=== PATIENT | male | born 1965 | race African-American/Black ===

== ENCOUNTER 2019-10-18 09:40 | Inpatient (IN) | payer MEDICARE, MEDICAID ==
[~2019-10-18] VITALS: Ht 175.3 cm; Wt 96.6 kg
[2019-10-18] MEDS ORDERED: SODIUM CHLORIDE 0.9% 1,000 ML IV ONE (10:25)
[2019-10-18] MEDS ORDERED: MORPHINE SULFATE 4 MG/ML CPJ (NOT FOR IM USE) IV STA (10:25)
[2019-10-18] MEDS ORDERED: ONDANSETRON HCL 4MG/2ML INJ IV STA (10:25)
[2019-10-18] MEDS ORDERED: IPRATROPIUM BROMIDE (0.02%) 0.5MG/2.5ML NEB HHN STA ×2 (10:28→12:16)
[2019-10-18] MEDS ORDERED: METHYLPREDNISOLONE SOD SUCC 125 MG/2 ML VIAL IV STA (10:28)
[2019-10-18] MEDS ORDERED: ALBUTEROL (0.083%) 2.5MG/3ML NEB HHN STA ×2 (10:28→12:16)
[2019-10-18 11:47] LABS: BASOPHILS % 0.6 % (0.0-2.0); HEMOGLOBIN. 16.8 g/dL (14.0-18.0); LYMPHOCYTES % 25.9 % (20.0-50.0); MEAN CORPUSCULAR HEMOGLOBIN 30.6 pg (28.0-32.0); MEAN CORPUSCULAR VOLUME 91.3 fL (80.0-94.0); MEAN PLATELET VOLUME 10.1 fl (7.4-10.4); MONOCYTES % 8.3 % (2.0-8.0); NEUTROPHILS % 64.2 % (40.0-76.0); PLATELET 152 x1000/uL (130-400); RED BLOOD CELL COUNT 5.48 mill/uL (4.7-6.1); RED CELL DISTRIBUTION WIDTH 16.6 % (11.6-14.6)
[2019-10-18 11:48] LABS: CHLORIDE 111 mEq/L (98-107); INR 1.3; PARTIAL THROMBOPLASTIN TIME 30.8 sec (23.4-31.0); PROTHROMBIN TIME 13.1 sec (9.6-11.0)
[2019-10-18] MEDS ORDERED: GUAIFENESIN 200MG/10ML SUGAR FREE UDC PO ONE (13:00)
[2019-10-18] MEDS ORDERED: IOHEXOL-350 100 ML BOTTLE ONE (13:55)
[2019-10-18] MEDS ORDERED: ASPIRIN 325MG EC TABLET PO ONE (14:15)
[2019-10-18 14:22] LABS: CLARITY URINE CLEAR (CLEAR); COLOR URINE YELLOW (YELLOW); KETONES URINE 2+ (NEGATIVE); LEUKOCYTE ESTERASE URINE NEGATIVE (NEGATIVE); NITRITE URINE NEGATIVE (NEGATIVE); OCCULT BLOOD URINE NEGATIVE (NEGATIVE); PH URINE 5.5 (4.5-8.0); PROTEIN URINE NEGATIVE (NEGATIVE); SPECIFIC GRAVITY URINE 1.042 (1.005-1.030)
[2019-10-18 14:55] LABS: *AMPHETAMINES SCREEN URINE NEGATIVE (NEGATIVE)
[2019-10-18 14:56] LABS: *BARBITURATES SCREEN URINE NEGATIVE (NEGATIVE); *BENZODIAZEPINES SCREEN URINE NEGATIVE (NEGATIVE); *COCAINE SCREEN URINE PRESUMTIVE POSITIVE (NEGATIVE); CANNABINOID URINE SCREEN PRESUMTIVE POSITIVE (NEGATIVE); METHADONE URINE SCREEN NEGATIVE (NEGATIVE); OPIATES URINE SCREEN PRESUMTIVE POSITIVE (NEGATIVE); PHENCYCLIDINE URINE SCREEN NEGATIVE (NEGATIVE)
[2019-10-18] MEDS ORDERED: CLONIDINE 0.1MG TABLET PO PRN (15:15)
[2019-10-18] MEDS ORDERED: ACETAMINOPHEN 325MG TABLET PO PRN (15:15)
[2019-10-18] MEDS ORDERED: DIPHENHYDRAMINE 50MG/ML VIAL IV PRN (15:15)
[2019-10-18] MEDS ORDERED: ONDANSETRON HCL 4MG/2ML INJ IV PRN (15:15)
[2019-10-18] MEDS ORDERED: IPRATROPIUM/ALBUTEROL 0.5-3(2.5)MG/3ML NEB HHN PRN (15:15)
[2019-10-18 15:40] LABS: PHOSPHORUS 2.7 mg/dL (2.5-4.9)
[2019-10-18] MEDS ORDERED: PNEUMOCOCCAL 23-VAL P-SAC VAC 0.5 ML IM ONE (18:00)
[2019-10-18 18:04] VITALS: BP 105/59
[2019-10-18] MEDS: MORPHINE SULFATE 2 MG/ML CPJ (NOT FOR IM USE) IV PRN ×2 (18:29→22:59)
[2019-10-18] MEDS: ENOXAPARIN 30MG/0.3ML SYR SUBCUT SCH (18:29)
[2019-10-18] MEDS ORDERED: SIMV-46 MT (18:48)
[2019-10-18] MEDS ORDERED: CARV3.1242 PO (18:54)
[2019-10-18] MEDS ORDERED: TRAZ-251 MT (18:54)
[2019-10-18] MEDS ORDERED: GABA-529 MT (18:57)
[2019-10-18] MEDS ORDERED: GABA-531 PO (18:57)
[2019-10-18] MEDS ORDERED: CARI350T28 MT (18:58)
[2019-10-18] MEDS ORDERED: RISP2TAB22 PO (18:59)
[2019-10-18] MEDS ORDERED: SERT20OR6 PO (19:00)
[2019-10-18] MEDS ORDERED: FURO20TA4 PO (19:01)
[2019-10-18 20:00] VITALS: BP 107/65
[2019-10-18] MEDS: LORAZEPAM 0.5MG TABLET PO PRN (23:32)
[2019-10-19] VITALS: BP 108/54
[2019-10-19 04:00] VITALS: BP 105/83
[2019-10-19] MEDS: MORPHINE SULFATE 2 MG/ML CPJ (NOT FOR IM USE) IV PRN ×3 (05:26→22:39)
[2019-10-19] MEDS: LORAZEPAM 0.5MG TABLET PO PRN ×3 (06:07→23:26)
[2019-10-19 07:10] LABS: BASOPHILS % 0.5 % (0.0-2.0); HEMATOCRIT. 45.7 % (42.0-52.0); HEMOGLOBIN. 15.3 g/dL (14.0-18.0); LYMPHOCYTES % 15.3 % (20.0-50.0); MEAN CORPUSCULAR HEMOGLOBIN 30.5 pg (28.0-32.0); MEAN CORPUSCULAR VOLUME 91.1 fL (80.0-94.0); MEAN PLATELET VOLUME 10.6 fl (7.4-10.4); MONOCYTES % 10.7 % (2.0-8.0); NEUTROPHILS % 73.5 % (40.0-76.0); PLATELET 125 x1000/uL (130-400); RED BLOOD CELL COUNT 5.01 mill/uL (4.7-6.1); RED CELL DISTRIBUTION WIDTH 16.6 % (11.6-14.6)
[2019-10-19 07:51] LABS: CHLORIDE 108 mEq/L (98-107)
[2019-10-19 07:57] LABS: LDL CHOLESTEROL 67 mg/dL (5-100)
[2019-10-19 07:58] LABS: HDL CHOLESTEROL 61 mg/dL (40-59)
[2019-10-19 08:00] VITALS: BP 111/75
[2019-10-19 12:00] VITALS: BP 106/68
[2019-10-19] MEDS: ENOXAPARIN 30MG/0.3ML SYR SUBCUT SCH ×2 (12:46→21:39)
[2019-10-19] MEDS: CARISOPRODOL 350 MG TABLET PO SCH ×2 (15:05→21:39)
[2019-10-19 16:00] VITALS: BP 106/75
[2019-10-19] MEDS: DEXAMETHASONE 4MG/ML 1ML VIAL IV SCH (18:25)
[2019-10-19 20:00] VITALS: BP 105/60
[2019-10-20] VITALS: BP 110/71
[2019-10-20] MEDS: DEXAMETHASONE 4MG/ML 1ML VIAL IV SCH ×4 (01:26→18:00)
[2019-10-20 04:00] VITALS: BP 97/71
[2019-10-20] MEDS: CARISOPRODOL 350 MG TABLET PO SCH ×3 (05:23→20:13)
[2019-10-20 08:00] VITALS: BP 123/75
[2019-10-20] MEDS: LORAZEPAM 0.5MG TABLET PO PRN ×2 (08:15→15:11)
[2019-10-20] MEDS: ENOXAPARIN 30MG/0.3ML SYR SUBCUT SCH ×2 (08:15→21:00)
[2019-10-20] MEDS: MORPHINE SULFATE 2 MG/ML CPJ (NOT FOR IM USE) IV PRN ×2 (08:15→15:11)
[2019-10-20 08:20] LABS: BASOPHILS % 0.1 % (0.0-2.0); HEMOGLOBIN. 16.7 g/dL (14.0-18.0); LYMPHOCYTES % 9.1 % (20.0-50.0); MEAN CORPUSCULAR HEMOGLOBIN 30.4 pg (28.0-32.0); MEAN CORPUSCULAR VOLUME 91.2 fL (80.0-94.0); MONOCYTES % 4.7 % (2.0-8.0); NEUTROPHILS % 86.1 % (40.0-76.0); RED BLOOD CELL COUNT 5.49 mill/uL (4.7-6.1); RED CELL DISTRIBUTION WIDTH 16.7 % (11.6-14.6)
[2019-10-20 08:37] LABS: CHLORIDE 108 mEq/L (98-107)
[2019-10-20 09:36] LABS: PLATELET 135 x1000/uL (130-400)
[2019-10-20] MEDS ORDERED: HYDR-4001 MT (13:54)
[2019-10-20] MEDS ORDERED: CARI350T28 MT (13:54)
[2019-10-20 14:19] VITALS: BP 125/75
[2019-10-20 16:49] VITALS: BP 101/63
[2019-10-20 20:00] VITALS: BP 112/76
[2019-10-20] MEDS: PROMETHAZINE/DEXTROMETHORPHAN 6.25-15MG/5ML BOTTLE 120ML PO PRN (20:13)
[2019-10-21] VITALS: BP 98/60
[2019-10-21] MEDS: MORPHINE SULFATE 2 MG/ML CPJ (NOT FOR IM USE) IV PRN ×3 (01:21→15:06)
[2019-10-21] MEDS: PROMETHAZINE/DEXTROMETHORPHAN 6.25-15MG/5ML BOTTLE 120ML PO PRN (03:35)
[2019-10-21] MEDS: LORAZEPAM 0.5MG TABLET PO PRN ×3 (03:35→15:21)
[2019-10-21 04:00] VITALS: BP 103/67
[2019-10-21] MEDS: CARISOPRODOL 350 MG TABLET PO SCH ×3 (06:13→21:27)
[2019-10-21 08:00] VITALS: BP 100/74
[2019-10-21] MEDS: ENOXAPARIN 30MG/0.3ML SYR SUBCUT SCH ×2 (08:25→21:00)
[2019-10-21 12:00] VITALS: BP 101/64
[2019-10-21 16:00] VITALS: BP 105/63
[2019-10-21 20:00] VITALS: BP 104/71
[2019-10-21] MEDS: GUAIFENESIN 200MG/10ML SUGAR FREE UDC PO PRN (21:27)
[2019-10-22] VITALS: BP 99/72
[2019-10-22] MEDS: MORPHINE SULFATE 2 MG/ML CPJ (NOT FOR IM USE) IV PRN ×4 (00:31→20:48)
[2019-10-22] MEDS: LORAZEPAM 0.5MG TABLET PO PRN ×4 (03:12→21:01)
[2019-10-22] MEDS: GUAIFENESIN 200MG/10ML SUGAR FREE UDC PO PRN ×3 (03:12→13:34)
[2019-10-22 04:00] VITALS: BP 108/70
[2019-10-22] MEDS: CARISOPRODOL 350 MG TABLET PO SCH ×3 (07:02→22:15)
[2019-10-22 08:00] VITALS: BP 101/64
[2019-10-22] MEDS: ENOXAPARIN 30MG/0.3ML SYR SUBCUT SCH ×2 (08:06→20:49)
[2019-10-22 12:00] VITALS: BP 107/60
[2019-10-22 16:00] VITALS: BP 106/66
[2019-10-22 20:00] VITALS: BP 96/66
[2019-10-23] VITALS: BP 101/75
[2019-10-23 04:00] VITALS: BP 108/72
[2019-10-23] MEDS: LORAZEPAM 0.5MG TABLET PO PRN ×3 (04:23→19:48)
[2019-10-23] MEDS: MORPHINE SULFATE 2 MG/ML CPJ (NOT FOR IM USE) IV PRN ×3 (04:25→16:57)
[2019-10-23] MEDS: CARISOPRODOL 350 MG TABLET PO SCH ×3 (06:19→22:00)
[2019-10-23 08:00] VITALS: BP 116/82
[2019-10-23] MEDS: ENOXAPARIN 30MG/0.3ML SYR SUBCUT SCH ×2 (09:02→21:18)
[2019-10-23 12:00] VITALS: BP 110/71
[2019-10-23] MEDS: GUAIFENESIN 200MG/10ML SUGAR FREE UDC PO PRN ×2 (13:40→19:48)
[2019-10-23 16:00] VITALS: BP 110/74
[2019-10-23 20:00] VITALS: BP 107/69
[2019-10-23] MEDS: HYDROCODONE/ACETAMINOPHEN 10/325MG TABLET PO PRN (20:06)
[2019-10-24] VITALS: BP 102/67
[2019-10-24] MEDS: GUAIFENESIN 200MG/10ML SUGAR FREE UDC PO PRN ×4 (02:18→20:54)
[2019-10-24] MEDS: HYDROCODONE/ACETAMINOPHEN 10/325MG TABLET PO PRN ×4 (02:25→20:55)
[2019-10-24 04:00] VITALS: BP 107/73
[2019-10-24] MEDS: CARISOPRODOL 350 MG TABLET PO SCH ×3 (06:30→21:32)
[2019-10-24 08:00] VITALS: BP 108/63
[2019-10-24] MEDS: DIPHENHYDRAMINE 25MG CAPSULE PO PRN ×2 (09:03→22:09)
[2019-10-24] MEDS: ENOXAPARIN 30MG/0.3ML SYR SUBCUT SCH ×2 (09:04→20:54)
[2019-10-24 12:00] VITALS: BP 122/89
[2019-10-24 16:00] VITALS: BP 114/85
[2019-10-24 20:00] VITALS: BP 108/72
[2019-10-25] VITALS: BP 111/66
[2019-10-25] MEDS: HYDROCODONE/ACETAMINOPHEN 10/325MG TABLET PO PRN ×4 (02:58→23:39)
[2019-10-25 04:00] VITALS: BP 110/75
[2019-10-25] MEDS: CARISOPRODOL 350 MG TABLET PO SCH ×3 (05:39→21:10)
[2019-10-25 08:00] VITALS: BP 107/60
[2019-10-25] MEDS: GUAIFENESIN 200MG/10ML SUGAR FREE UDC PO PRN ×2 (09:16→17:38)
[2019-10-25] MEDS: ENOXAPARIN 30MG/0.3ML SYR SUBCUT SCH ×2 (09:16→21:00)
[2019-10-25 12:00] VITALS: BP 110/57
[2019-10-25 16:00] VITALS: BP 107/68
[2019-10-25 20:00] VITALS: BP 103/69
[2019-10-26] VITALS: BP 105/70
[2019-10-26 04:00] VITALS: BP 104/66
[2019-10-26] MEDS: CARISOPRODOL 350 MG TABLET PO SCH ×3 (05:15→21:56)
[2019-10-26] MEDS: HYDROCODONE/ACETAMINOPHEN 10/325MG TABLET PO PRN ×3 (06:13→20:34)
[2019-10-26] MEDS: GUAIFENESIN 200MG/10ML SUGAR FREE UDC PO PRN ×2 (06:15→21:13)
[2019-10-26 08:00] VITALS: BP 104/70
[2019-10-26] MEDS: ENOXAPARIN 30MG/0.3ML SYR SUBCUT SCH ×3 (09:00→21:00)
[2019-10-26 12:00] VITALS: BP 108/64
[2019-10-26 16:00] VITALS: BP 111/61
[2019-10-26 20:00] VITALS: BP 108/74
[2019-10-26] MEDS: DIPHENHYDRAMINE 25MG CAPSULE PO PRN (21:13)
[2019-10-27] VITALS: BP 107/65
[2019-10-27 04:00] VITALS: BP 110/81
[2019-10-27] MEDS: HYDROCODONE/ACETAMINOPHEN 10/325MG TABLET PO PRN ×3 (04:01→20:42)
[2019-10-27] MEDS: GUAIFENESIN 200MG/10ML SUGAR FREE UDC PO PRN ×2 (04:13→10:25)
[2019-10-27] MEDS: DIPHENHYDRAMINE 25MG CAPSULE PO PRN ×2 (04:13→23:34)
[2019-10-27] MEDS: CARISOPRODOL 350 MG TABLET PO SCH ×3 (06:04→21:40)
[2019-10-27 08:00] VITALS: BP 110/79
[2019-10-27] MEDS: ENOXAPARIN 30MG/0.3ML SYR SUBCUT SCH ×2 (09:34→20:41)
[2019-10-27 12:00] VITALS: BP 102/66
[2019-10-27 16:00] VITALS: BP 107/72
[2019-10-27 20:00] VITALS: BP 111/68
[2019-10-28] VITALS: BP 99/57
[2019-10-28 04:00] VITALS: BP 101/69
[2019-10-28] MEDS: HYDROCODONE/ACETAMINOPHEN 10/325MG TABLET PO PRN ×3 (04:05→19:40)
[2019-10-28] MEDS: CARISOPRODOL 350 MG TABLET PO SCH ×3 (05:51→21:00)
[2019-10-28 08:00] VITALS: BP 103/56
[2019-10-28] MEDS: ENOXAPARIN 30MG/0.3ML SYR SUBCUT SCH ×2 (09:10→20:52)
[2019-10-28 12:00] VITALS: BP 97/60
[2019-10-28 16:00] VITALS: BP 109/72
[2019-10-28 20:00] VITALS: BP 111/68
[2019-10-28] MEDS: DIPHENHYDRAMINE 25MG CAPSULE PO PRN (22:57)
[2019-10-29] VITALS: BP 96/55
[2019-10-29 04:00] VITALS: BP 107/58
[2019-10-29] MEDS: HYDROCODONE/ACETAMINOPHEN 10/325MG TABLET PO PRN ×2 (04:30→11:04)
[2019-10-29] MEDS: GUAIFENESIN 200MG/10ML SUGAR FREE UDC PO PRN ×2 (04:35→11:09)
[2019-10-29] MEDS: DIPHENHYDRAMINE 25MG CAPSULE PO PRN (05:12)
[2019-10-29] MEDS: CARISOPRODOL 350 MG TABLET PO SCH (06:15)
[2019-10-29 08:00] VITALS: BP 109/68
[2019-10-29 08:05] LABS: BASOPHILS % 1.3 % (0.0-2.0); HEMOGLOBIN. 17.1 g/dL (14.0-18.0); LYMPHOCYTES % 48.3 % (20.0-50.0); MEAN CORPUSCULAR HEMOGLOBIN 30.4 pg (28.0-32.0); MEAN CORPUSCULAR VOLUME 90.6 fL (80.0-94.0); MEAN PLATELET VOLUME 10.8 fl (7.4-10.4); NEUTROPHILS % 35.4 % (40.0-76.0); PLATELET 165 x1000/uL (130-400); RED BLOOD CELL COUNT 5.63 mill/uL (4.7-6.1); RED CELL DISTRIBUTION WIDTH 15.8 % (11.6-14.6)
[2019-10-29] MEDS: ENOXAPARIN 30MG/0.3ML SYR SUBCUT SCH (08:30)
[2019-10-29 08:33] LABS: CHLORIDE 108 mEq/L (98-107)
[2019-10-29 11:54] VITALS: BP 100/66
[2019-10-29 12:00] VITALS: BP 100/6
[2020-02-07] MEDS ORDERED: GABA-531 PO (16:14)
[2020-02-07] MEDS ORDERED: TRAZ-251 MT (16:14)
[2020-02-07] MEDS ORDERED: CARV3.1242 PO (16:14)
[2020-02-07] MEDS ORDERED: SIMV-46 MT (16:14)
[2020-02-07] MEDS ORDERED: FURO20TA4 PO (16:14)
[2020-02-07] MEDS ORDERED: RISP2TAB22 PO (16:14)
[2020-02-07] MEDS ORDERED: SERT20OR6 PO (16:14)
== END 2019-10-29 15:10 | disposition home or self-care (01) | DRG 552 ==
LOC: ER 09:40 → 5WST 14:49 → ENRESERV 15:28
PROVIDERS: ADMIT Internal Medicine; ATTEND Internal Medicine
DX: M47.27 Other spondylosis with radiculopathy, lumbosacral region (principal); M25.78 Osteophyte, vertebrae; I25.118 Atherosclerotic heart disease of native coronary artery with other forms of angina pectoris; F17.200 Nicotine dependence, unspecified, uncomplicated; I10 Essential (primary) hypertension; M48.061 Spinal stenosis, lumbar region without neurogenic claudication; E11.9 Type 2 diabetes mellitus without complications; F11.10 Opioid abuse, uncomplicated; J44.9 Chronic obstructive pulmonary disease, unspecified; M47.26 Other spondylosis with radiculopathy, lumbar region; F19.10 Other psychoactive substance abuse, uncomplicated; I25.2 Old myocardial infarction; Z95.5 Presence of coronary angioplasty implant and graft; Z79.899 Other long term (current) drug therapy
CPT/HCPCS: 36415; 71045; 71275; 72148; 74174; 80048; 80053; 80061; 80305; 81003; 83735; 83880; 84100; 84443; 84484; 85025; 86850; 86900; 90732; 93005; 93306; 93970; 94640; 97110; 97116; 97162; 97166; 97530; 97535; 99285; J1100; J1650; J2270; J2405; J2930; J7030; Q0163; Q9967

== ENCOUNTER 2020-01-22 07:25 | Inpatient (IN) | payer MEDICARE, MEDICAID ==
[~2020-01-22] VITALS: Ht 175.3 cm; Wt 90.3 kg
[~2020-01-22 07:25] MED LIST: CARI350T28 MT; CARV3.1242 PO; FURO20TA4 PO; GABA-531 PO; HYDR-4001 MT; RISP2TAB22 PO; SERT20OR6 PO; SIMV-46 MT; TRAZ-251 MT
[2020-01-22 09:47] LABS: BASOPHILS % 0.3 % (0.0-2.0); EOSINOPHILS % 2.2 % (0.0-5.0); HEMATOCRIT. 45.2 % (42.0-52.0); HEMOGLOBIN. 15.4 g/dL (14.0-18.0); LYMPHOCYTES % 26.1 % (20.0-50.0); MEAN CORPUSCULAR HEMOGLOBIN 30.8 pg (28.0-32.0); MEAN CORPUSCULAR VOLUME 90.3 fL (80.0-94.0); MEAN PLATELET VOLUME 10.3 fl (7.4-10.4); MONOCYTES % 10.3 % (2.0-8.0); NEUTROPHILS % 61.1 % (40.0-76.0); PLATELET 125 x1000/uL (130-400); RED BLOOD CELL COUNT 5.01 mill/uL (4.7-6.1); RED CELL DISTRIBUTION WIDTH 14.4 % (11.6-14.6)
[2020-01-22 09:51] LABS: CHLORIDE 103 mEq/L (98-107)
[2020-01-22 10:28] LABS: CLARITY URINE CLOUDY (CLEAR); COLOR URINE DARK YELLOW (YELLOW); KETONES URINE 3+ (NEGATIVE); LEUKOCYTE ESTERASE URINE TRACE (NEGATIVE); NITRITE URINE NEGATIVE (NEGATIVE); OCCULT BLOOD URINE TRACE (NEGATIVE); PH URINE 5.5 (4.5-8.0); PROTEIN URINE 2+ (NEGATIVE); SPECIFIC GRAVITY URINE 1.035 (1.005-1.030)
[2020-01-22 10:47] LABS: *AMPHETAMINES SCREEN URINE PRESUMTIVE POSITIVE (NEGATIVE); *BARBITURATES SCREEN URINE NEGATIVE (NEGATIVE); *BENZODIAZEPINES SCREEN URINE PRESUMTIVE POSITIVE (NEGATIVE); *COCAINE SCREEN URINE PRESUMTIVE POSITIVE (NEGATIVE); METHADONE URINE SCREEN NEGATIVE (NEGATIVE); OPIATES URINE SCREEN PRESUMTIVE POSITIVE (NEGATIVE)
[2020-01-22 10:48] LABS: CANNABINOID URINE SCREEN PRESUMTIVE POSITIVE (NEGATIVE); PHENCYCLIDINE URINE SCREEN NEGATIVE (NEGATIVE)
[2020-01-22] MEDS: MORPHINE SULFATE 2 MG/ML CPJ (NOT FOR IM USE) IV PRN ×3 (15:41→19:14)
[2020-01-22] MEDS: BACLOFEN 10MG TABLET PO PRN (19:43)
[2020-01-22] MEDS ORDERED: FUROSEMIDE 40MG/4ML VIAL IVP NR (20:00)
[2020-01-22] MEDS: HYDROCODONE/ACETAMINOPHEN 5/325MG TABLET PO PRN (21:50)
[2020-01-22 23:00] VITALS: BP 108/75
[2020-01-23] VITALS (11 sets, daily range): BP systolic 89–124; BP diastolic 52–86
[2020-01-23] MEDS: MORPHINE SULFATE 2 MG/ML CPJ (NOT FOR IM USE) IV PRN ×2 (03:57→09:43)
[2020-01-23 06:57] LABS: BASOPHILS % 0.8 % (0.0-2.0); EOSINOPHILS % 4.5 % (0.0-5.0); HEMATOCRIT. 44.7 % (42.0-52.0); HEMOGLOBIN. 15.3 g/dL (14.0-18.0); LYMPHOCYTES % 39.4 % (20.0-50.0); MEAN CORPUSCULAR HEMOGLOBIN 31.1 pg (28.0-32.0); MEAN CORPUSCULAR VOLUME 91.1 fL (80.0-94.0); MEAN PLATELET VOLUME 10.5 fl (7.4-10.4); MONOCYTES % 9.6 % (2.0-8.0); NEUTROPHILS % 45.7 % (40.0-76.0); PLATELET 117 x1000/uL (130-400); RED BLOOD CELL COUNT 4.91 mill/uL (4.7-6.1); RED CELL DISTRIBUTION WIDTH 14.2 % (11.6-14.6)
[2020-01-23 08:03] LABS: CHLORIDE 103 mEq/L (98-107)
[2020-01-23] MEDS: BACLOFEN 10MG TABLET PO PRN ×2 (12:19→18:26)
[2020-01-23] MEDS: HYDROCODONE/ACETAMINOPHEN 5/325MG TABLET PO PRN ×3 (13:03→19:49)
[2020-01-23] MEDS: ASPIRIN 81MG EC TABLET PO SCH (16:02)
[2020-01-23] MEDS: CLOPIDOGREL 75MG TABLET PO SCH (16:02)
[2020-01-23] MEDS: ATORVASTATIN CALCIUM 40MG TABLET PO SCH (20:07)
[2020-01-23] MEDS: TRAZODONE HCL 50MG TABLET PO SCH (20:07)
[2020-01-24] VITALS (12 sets, daily range): BP systolic 95–123; BP diastolic 58–82
[2020-01-24] MEDS: BACLOFEN 10MG TABLET PO PRN ×2 (02:01→10:23)
[2020-01-24] MEDS: HYDROCODONE/ACETAMINOPHEN 5/325MG TABLET PO PRN ×3 (02:07→17:00)
[2020-01-24 06:52] LABS: BASOPHILS % 0.8 % (0.0-2.0); EOSINOPHILS % 4.8 % (0.0-5.0); HEMATOCRIT. 43.6 % (42.0-52.0); HEMOGLOBIN. 14.6 g/dL (14.0-18.0); LYMPHOCYTES % 44.8 % (20.0-50.0); MEAN CORPUSCULAR HEMOGLOBIN 30.5 pg (28.0-32.0); MEAN CORPUSCULAR VOLUME 91.1 fL (80.0-94.0); MEAN PLATELET VOLUME 10.5 fl (7.4-10.4); MONOCYTES % 9.6 % (2.0-8.0); PLATELET 124 x1000/uL (130-400); RED BLOOD CELL COUNT 4.78 mill/uL (4.7-6.1); RED CELL DISTRIBUTION WIDTH 14.1 % (11.6-14.6)
[2020-01-24 06:59] LABS: CHLORIDE 109 mEq/L (98-107)
[2020-01-24] MEDS: GABAPENTIN 300MG CAPSULE PO SCH (08:29)
[2020-01-24] MEDS: CARVEDILOL 3.125 MG TABLET PO SCH (08:29)
[2020-01-24] MEDS: FUROSEMIDE 20MG TABLET PO SCH (08:29)
[2020-01-24] MEDS: ASPIRIN 81MG EC TABLET PO SCH (08:29)
[2020-01-24] MEDS: RISPERIDONE 1MG TABLET PO SCH (08:29)
[2020-01-24] MEDS: SERTRALINE HCL 50MG TABLET PO SCH (08:31)
[2020-01-24] MEDS: CLOPIDOGREL 75MG TABLET PO SCH (08:31)
[2020-01-24] MEDS ORDERED: DIPHENHYDRAMINE 25MG CAPSULE PO PRN (11:15)
[2020-01-24] MEDS: CEPHALEXIN 250MG CAPSULE PO SCH ×2 (12:00→16:47)
[2020-01-24] MEDS ORDERED: CARV3.1242 PO (13:57)
[2020-01-24] MEDS ORDERED: SIMV-46 MT (13:57)
[2020-01-24] MEDS ORDERED: FURO20TA4 PO (13:57)
[2020-01-24] MEDS: ATORVASTATIN CALCIUM 40MG TABLET PO SCH (20:49)
[2020-01-24] MEDS: TRAZODONE HCL 50MG TABLET PO SCH (20:50)
[2020-01-24] MEDS: MICONAZOLE NITRATE 2% OINT 71GM TOP SCH (21:11)
[2020-01-25] VITALS (7 sets, daily range): BP systolic 86–112; BP diastolic 46–79
[2020-01-25] MEDS: CEPHALEXIN 250MG CAPSULE PO SCH ×2 (00:09→05:59)
[2020-01-25] MEDS: HYDROCODONE/ACETAMINOPHEN 5/325MG TABLET PO PRN ×3 (00:14→10:22)
[2020-01-25] MEDS: BACLOFEN 10MG TABLET PO PRN (04:36)
[2020-01-25] MEDS: MICONAZOLE NITRATE 2% OINT 71GM TOP SCH (10:13)
[2020-01-25] MEDS: RISPERIDONE 1MG TABLET PO SCH (10:14)
[2020-01-25] MEDS: SERTRALINE HCL 50MG TABLET PO SCH (10:15)
[2020-01-25] MEDS: CLOPIDOGREL 75MG TABLET PO SCH (10:15)
[2020-01-25] MEDS: GABAPENTIN 300MG CAPSULE PO SCH (10:15)
[2020-01-25] MEDS: FUROSEMIDE 20MG TABLET PO SCH (10:15)
[2020-01-25] MEDS: ASPIRIN 81MG EC TABLET PO SCH (10:15)
[2020-01-25] MEDS: CARVEDILOL 3.125 MG TABLET PO SCH (10:17)
[2020-02-07] MEDS ORDERED: RISP2TAB22 PO (16:14)
[2020-02-07] MEDS ORDERED: FURO20TA4 PO (16:14)
[2020-02-07] MEDS ORDERED: SIMV-46 MT (16:14)
[2020-02-07] MEDS ORDERED: TRAZ-251 MT (16:14)
[2020-02-07] MEDS ORDERED: GABA-531 PO (16:14)
[2020-02-07] MEDS ORDERED: CARV3.1242 PO (16:14)
[2020-02-07] MEDS ORDERED: SERT20OR6 PO (16:14)
== END 2020-01-25 12:42 | disposition home or self-care (01) | DRG 206 ==
LOC: ER 07:44 → EDBEDREQTM 11:52 → EDBEDREQ 11:52 → ENRESERV 21:03 → 3WST 22:08
PROVIDERS: ADMIT Internal Medicine; ATTEND Internal Medicine
DX: M94.0 Chondrocostal junction syndrome [Tietze] (principal); I42.9 Cardiomyopathy, unspecified; I50.22 Chronic systolic (congestive) heart failure; I11.0 Hypertensive heart disease with heart failure; I25.118 Atherosclerotic heart disease of native coronary artery with other forms of angina pectoris; M48.061 Spinal stenosis, lumbar region without neurogenic claudication; F11.10 Opioid abuse, uncomplicated; J44.9 Chronic obstructive pulmonary disease, unspecified; J45.909 Unspecified asthma, uncomplicated; F15.10 Other stimulant abuse, uncomplicated; F12.10 Cannabis abuse, uncomplicated; F14.10 Cocaine abuse, uncomplicated; F29 Unspecified psychosis not due to a substance or known physiological condition; I25.2 Old myocardial infarction; Z91.19 Patient's noncompliance with other medical treatment and regimen; Z95.5 Presence of coronary angioplasty implant and graft; Z95.810 Presence of automatic (implantable) cardiac defibrillator; Z79.891 Long term (current) use of opiate analgesic; Z79.84 Long term (current) use of oral hypoglycemic drugs; Z79.899 Other long term (current) drug therapy
CPT/HCPCS: 36415; 71045; 80048; 80053; 80305; 81003; 83880; 84484; 85025; 93005; 93306; 96365; 99285; J2270

== ENCOUNTER 2020-02-02 03:49 | Inpatient (IN) | payer MEDICARE, MEDICAID ==
[~2020-02-02] VITALS: Ht 170.2 cm; Wt 89.4 kg
[2020-02-02] MEDS ORDERED: NITROGLYCERIN 0.4MG TABLET SL SL PRN (04:30)
[2020-02-02] MEDS ORDERED: ASPIRIN 81MG TABLET PO ONE (04:30)
[2020-02-02 04:53] LABS: BASOPHILS % 1.1 % (0.0-2.0); HEMATOCRIT. 43.5 % (42.0-52.0); LYMPHOCYTES % 35.2 % (20.0-50.0); MEAN CORPUSCULAR HEMOGLOBIN 31.5 pg (28.0-32.0); MEAN CORPUSCULAR VOLUME 91.4 fL (80.0-94.0); NEUTROPHILS % 52.7 % (40.0-76.0); PLATELET 207 x1000/uL (130-400); RED BLOOD CELL COUNT 4.76 mill/uL (4.7-6.1); RED CELL DISTRIBUTION WIDTH 14.4 % (11.6-14.6)
[2020-02-02 04:56] LABS: CHLORIDE 106 mEq/L (98-107)
[2020-02-02 05:00] LABS: PARTIAL THROMBOPLASTIN TIME 28.4 sec (23.4-31.0); PROTHROMBIN TIME 10.7 sec (9.6-11.0)
[2020-02-02 11:00] VITALS: BP 105/60
[2020-02-02 12:00] VITALS: BP 107/60
[2020-02-02] MEDS ORDERED: ACETAMINOPHEN 325MG TABLET PO PRN (12:15)
[2020-02-02] MEDS ORDERED: CLONIDINE 0.1MG TABLET PO PRN (12:15)
[2020-02-02] MEDS ORDERED: BACLOFEN 10MG TABLET PO PRN (12:15)
[2020-02-02] MEDS ORDERED: ONDANSETRON HCL 4MG/2ML INJ IV PRN (12:15)
[2020-02-02] MEDS: CARVEDILOL 3.125 MG TABLET PO SCH (12:30)
[2020-02-02] MEDS ORDERED: LORA-249 PO (12:52)
[2020-02-02] MEDS ORDERED: PROM5SYR PO (12:52)
[2020-02-02] MEDS: FUROSEMIDE 20MG TABLET PO SCH (13:28)
[2020-02-02] MEDS: GABAPENTIN 300MG CAPSULE PO SCH (13:28)
[2020-02-02] MEDS: SERTRALINE HCL 50MG TABLET PO SCH (13:28)
[2020-02-02] MEDS: RISPERIDONE 1MG TABLET PO SCH (13:28)
[2020-02-02] MEDS: HYDROCODONE/ACETAMINOPHEN 5/325MG TABLET PO PRN (14:03)
[2020-02-02 16:00] VITALS: BP 107/74
[2020-02-02 20:00] VITALS: BP 106/71
[2020-02-02] MEDS ORDERED: TRAZODONE HCL 50MG TABLET PO SCH (21:00)
[2020-02-02] MEDS ORDERED: ATORVASTATIN CALCIUM 40MG TABLET PO SCH (21:00)
[2020-02-03] VITALS: BP 118/82
[2020-02-03] MEDS: HYDROCODONE/ACETAMINOPHEN 5/325MG TABLET PO PRN ×2 (00:14→14:32)
[2020-02-03 04:00] VITALS: BP 121/49
[2020-02-03 08:00] VITALS: BP 102/64
[2020-02-03] MEDS: CARVEDILOL 3.125 MG TABLET PO SCH (09:00)
[2020-02-03] MEDS: RISPERIDONE 1MG TABLET PO SCH (09:18)
[2020-02-03] MEDS: GABAPENTIN 300MG CAPSULE PO SCH (09:18)
[2020-02-03] MEDS: FUROSEMIDE 20MG TABLET PO SCH (09:18)
[2020-02-03] MEDS: SERTRALINE HCL 50MG TABLET PO SCH (09:19)
[2020-02-03 12:00] VITALS: BP 101/68
[2020-02-03 15:12] VITALS: BP 101/68
[2020-02-07] MEDS ORDERED: RISP2TAB22 PO (16:14)
[2020-02-07] MEDS ORDERED: TRAZ-251 MT (16:14)
[2020-02-07] MEDS ORDERED: SIMV-46 MT (16:14)
[2020-02-07] MEDS ORDERED: GABA-531 PO (16:14)
[2020-02-07] MEDS ORDERED: SERT20OR6 PO (16:14)
[2020-02-07] MEDS ORDERED: CARV3.1242 PO (16:14)
[2020-02-07] MEDS ORDERED: FURO20TA4 PO (16:14)
== END 2020-02-03 17:34 | disposition home or self-care (01) | DRG 313 ==
LOC: ER 03:49 → MICUSO 05:30 → 5WST 10:52
PROVIDERS: ADMIT Internal Medicine; ATTEND Internal Medicine
DX: R07.89 Other chest pain (principal); I50.22 Chronic systolic (congestive) heart failure; G89.29 Other chronic pain; I11.0 Hypertensive heart disease with heart failure; I25.10 Atherosclerotic heart disease of native coronary artery without angina pectoris; J45.909 Unspecified asthma, uncomplicated; M48.061 Spinal stenosis, lumbar region without neurogenic claudication; F11.90 Opioid use, unspecified, uncomplicated; Z95.5 Presence of coronary angioplasty implant and graft; Z95.810 Presence of automatic (implantable) cardiac defibrillator; Z79.899 Other long term (current) drug therapy
CPT/HCPCS: 36415; 71045; 80053; 83880; 84484; 85025; 93005; 99285

== ENCOUNTER 2020-04-14 10:54 | Emergency (ER) | payer BC, MEDICAID ==
[~2020-04-14] VITALS: Ht 182.9 cm; Wt 91.0 kg
[~2020-04-14 10:54] MED LIST changes: +LORA-249 PO; +PROM5SYR PO
[2020-04-14 12:26] LABS: BASOPHILS % 0.8 % (0.0-2.0); EOSINOPHILS % 3.7 % (0.0-5.0); HEMATOCRIT. 43.7 % (42.0-52.0); HEMOGLOBIN. 14.6 g/dL (14.0-18.0); LYMPHOCYTES % 30.6 % (20.0-50.0); MEAN CORPUSCULAR HEMOGLOBIN 30.8 pg (28.0-32.0); MEAN CORPUSCULAR VOLUME 91.9 fL (80.0-94.0); MEAN PLATELET VOLUME 9.2 fl (7.4-10.4); MONOCYTES % 7.7 % (2.0-8.0); NEUTROPHILS % 57.2 % (40.0-76.0); PLATELET 147 x1000/uL (130-400); RED BLOOD CELL COUNT 4.76 mill/uL (4.7-6.1); RED CELL DISTRIBUTION WIDTH 14.4 % (11.6-14.6)
[2020-04-14 12:32] LABS: CHLORIDE 109 mEq/L (98-107)
[2020-04-14 12:34] LABS: ETHANOL BLOOD < 10 mg/dL
[2020-04-14 13:38] LABS: *AMPHETAMINES SCREEN URINE PRESUMTIVE POSITIVE (NEGATIVE); *BARBITURATES SCREEN URINE NEGATIVE (NEGATIVE); *BENZODIAZEPINES SCREEN URINE NEGATIVE (NEGATIVE); *COCAINE SCREEN URINE PRESUMTIVE POSITIVE (NEGATIVE); METHADONE URINE SCREEN NEGATIVE (NEGATIVE); OPIATES URINE SCREEN NEGATIVE (NEGATIVE)
[2020-04-14 13:39] LABS: CANNABINOID URINE SCREEN PRESUMTIVE POSITIVE (NEGATIVE); PHENCYCLIDINE URINE SCREEN NEGATIVE (NEGATIVE)
[2020-04-14 16:15] VITALS: BP 120/69
[2020-04-14 20:26] LABS: CLARITY URINE TURBID (CLEAR); KETONES URINE 1+ (NEGATIVE); LEUKOCYTE ESTERASE URINE NEGATIVE (NEGATIVE); NITRITE URINE NEGATIVE (NEGATIVE); OCCULT BLOOD URINE NEGATIVE (NEGATIVE); PROTEIN URINE 1+ (NEGATIVE); SPECIFIC GRAVITY URINE 1.038 (1.005-1.030)
[2020-04-14 20:28] LABS: COLOR URINE YELLOW (YELLOW)
== END 2020-04-14 18:04 | disposition home or self-care (01) ==
LOC: ER 10:54
DX: F19.10 Other psychoactive substance abuse, uncomplicated (principal); F14.10 Cocaine abuse, uncomplicated; F15.10 Other stimulant abuse, uncomplicated; F12.10 Cannabis abuse, uncomplicated
CPT/HCPCS: 36415; 71045; 80053; 80305; 80320; 81003; 83880; 84484; 85025; 93005; 99285; G0480

== ENCOUNTER 2020-12-16 04:37 | Inpatient (IN) | payer MEDICARE, MEDICAID ==
[~2020-12-16] VITALS: Ht 170.2 cm; Wt 90.7 kg
[~2020-12-16 04:37] MED LIST changes: -GABA-531 PO; +GABA-532 PO; -RISP2TAB22 PO; +RISP2TAB85 PO
[2020-12-16] MEDS ORDERED: MORPHINE SULFATE 4 MG/ML CPJ (NOT FOR IM USE) IV STA (05:20)
[2020-12-16] MEDS ORDERED: NITROGLYCERIN OINT 1GM/INCH UDPKT TD ONE (05:30)
[2020-12-16 05:37] LABS: BASOPHILS % 1.6 % (0.0-2.0); EOSINOPHILS % 0.8 % (0.0-5.0); HEMATOCRIT. 40.3 % (42.0-52.0); HEMOGLOBIN. 13.8 g/dL (14.0-18.0); LYMPHOCYTES % 26.5 % (20.0-50.0); MEAN CORPUSCULAR HEMOGLOBIN 29.6 pg (28.0-32.0); MEAN CORPUSCULAR VOLUME 86.7 fL (80.0-94.0); MEAN PLATELET VOLUME 8.6 fl (7.4-10.4); MONOCYTES % 6.4 % (2.0-8.0); NEUTROPHILS % 64.7 % (40.0-76.0); PLATELET 155 x1000/uL (130-400); RED BLOOD CELL COUNT 4.65 mill/uL (4.7-6.1); RED CELL DISTRIBUTION WIDTH 14.5 % (11.6-14.6)
[2020-12-16 05:43] LABS: CHLORIDE 107 mEq/L (98-107)
[2020-12-16] MEDS: ONDANSETRON HCL 4MG/2ML INJ IV STA ×2 (05:56→06:01)
[2020-12-16] MEDS ORDERED: IOHEXOL-350 100 ML BOTTLE ONE (06:45)
[2020-12-16 08:30] VITALS: BP 127/82
[2020-12-16] MEDS ORDERED: ACETAMINOPHEN 325MG TABLET PO PRN ×2 (08:45→16:00)
[2020-12-16] MEDS ORDERED: CLONIDINE 0.1MG TABLET PO PRN (08:45)
[2020-12-16] MEDS ORDERED: DIPHENHYDRAMINE 50MG/ML VIAL IV PRN (08:45)
[2020-12-16] MEDS ORDERED: ONDANSETRON HCL 4MG/2ML INJ IV PRN (08:45)
[2020-12-16] MEDS: ENOXAPARIN 40MG/0.4ML SYR SUBCUT SCH (09:55)
[2020-12-16 12:00] VITALS: BP 100/55
[2020-12-16] MEDS ORDERED: OXYC30TA86 PO (12:00)
[2020-12-16] MEDS ORDERED: ASPI-1497 PO (12:00)
[2020-12-16] MEDS ORDERED: ALPR2TAB2 PO (12:00)
[2020-12-16 16:00] VITALS: BP 97/59
[2020-12-16] MEDS ORDERED: ALPRAZOLAM 0.5 MG TABLET PO PRN (16:00)
[2020-12-16] MEDS ORDERED: GUAIFENESIN 200MG/10ML SUGAR FREE UDC PO PRN (16:00)
[2020-12-16] MEDS ORDERED: LORAZEPAM 0.5MG TABLET PO PRN (16:00)
[2020-12-16] MEDS: HYDROCODONE/ACETAMINOPHEN 5/325MG TABLET PO PRN (16:43)
[2020-12-16] MEDS: GABAPENTIN 300MG CAPSULE PO SCH (16:43)
[2020-12-16] MEDS: FUROSEMIDE 20MG TABLET PO SCH (16:43)
[2020-12-16 20:00] VITALS: BP 110/75
[2020-12-16] MEDS: ATORVASTATIN CALCIUM 40MG TABLET PO SCH (20:49)
[2020-12-16] MEDS: TRAZODONE HCL 50MG TABLET PO SCH (20:49)
[2020-12-17] VITALS: BP 109/63
[2020-12-17] MEDS: HYDROCODONE/ACETAMINOPHEN 5/325MG TABLET PO PRN ×2 (02:15→08:51)
[2020-12-17 04:00] VITALS: BP 108/77
[2020-12-17 08:04] VITALS: BP 96/67
[2020-12-17] MEDS: ASPIRIN 81MG EC TABLET PO SCH (08:51)
[2020-12-17] MEDS: FUROSEMIDE 20MG TABLET PO SCH (08:51)
[2020-12-17] MEDS: RISPERIDONE 1MG TABLET PO SCH (08:51)
[2020-12-17] MEDS: SERTRALINE HCL 50MG TABLET PO SCH (08:52)
[2020-12-17] MEDS: GABAPENTIN 300MG CAPSULE PO SCH (08:52)
[2020-12-17] MEDS: ENOXAPARIN 40MG/0.4ML SYR SUBCUT SCH (08:52)
[2020-12-17] MEDS: CARVEDILOL 3.125 MG TABLET PO SCH (08:52)
[2020-12-17 09:52] LABS: BASOPHILS % 1.9 % (0.0-2.0); EOSINOPHILS % 5.6 % (0.0-5.0); HEMATOCRIT. 43.3 % (42.0-52.0); HEMOGLOBIN. 14.4 g/dL (14.0-18.0); LYMPHOCYTES % 34.8 % (20.0-50.0); MEAN CORPUSCULAR HEMOGLOBIN 29.2 pg (28.0-32.0); MEAN CORPUSCULAR VOLUME 87.6 fL (80.0-94.0); MEAN PLATELET VOLUME 8.9 fl (7.4-10.4); MONOCYTES % 6.1 % (2.0-8.0); NEUTROPHILS % 51.6 % (40.0-76.0); PLATELET 151 x1000/uL (130-400); RED BLOOD CELL COUNT 4.94 mill/uL (4.7-6.1); RED CELL DISTRIBUTION WIDTH 14.7 % (11.6-14.6)
[2020-12-17 09:57] LABS: CHLORIDE 108 mEq/L (98-107)
[2020-12-17 10:05] LABS: LDL CHOLESTEROL 56 mg/dL (5-100)
[2020-12-17 10:07] LABS: HDL CHOLESTEROL 79 mg/dL (40-59)
[2020-12-17 12:00] VITALS: BP 98/65
[2020-12-17] MEDS: CARISOPRODOL 350 MG TABLET PO PRN (15:14)
[2020-12-17] MEDS ORDERED: HYDROCODONE/APAP 7.5/325MG 1 TAB TABLET PO PRN (15:45)
[2020-12-17 16:00] VITALS: BP 97/56
[2020-12-17] MEDS ORDERED: POTASSIUM CHLORIDE 20MEQ TABLET SR PO NR (17:15)
[2020-12-17 20:00] VITALS: BP 96/60
[2020-12-17] MEDS: ATORVASTATIN CALCIUM 40MG TABLET PO SCH (20:57)
[2020-12-17] MEDS: TRAZODONE HCL 50MG TABLET PO SCH (20:57)
[2020-12-18] VITALS: BP 103/63
[2020-12-18] MEDS: CARISOPRODOL 350 MG TABLET PO PRN (03:42)
[2020-12-18 04:00] VITALS: BP 92/58
[2020-12-18 08:00] VITALS: BP 108/71
[2020-12-18] MEDS ORDERED: ENOXAPARIN 30MG/0.3ML SYR SUBCUT SCH (09:00)
[2020-12-18] MEDS: RISPERIDONE 1MG TABLET PO SCH (09:28)
[2020-12-18] MEDS: CARVEDILOL 3.125 MG TABLET PO SCH (09:29)
[2020-12-18] MEDS: ASPIRIN 81MG EC TABLET PO SCH (09:29)
[2020-12-18] MEDS: GABAPENTIN 300MG CAPSULE PO SCH (09:29)
[2020-12-18] MEDS: FUROSEMIDE 20MG TABLET PO SCH (09:29)
[2020-12-18] MEDS: SERTRALINE HCL 50MG TABLET PO SCH (09:29)
== END 2020-12-18 09:37 | disposition home health service (06) | DRG 206 ==
LOC: ER 04:37 → 8WST 06:33 → EDBEDREQ 06:39 → ENRESERV 07:35
PROVIDERS: ADMIT Internal Medicine; ATTEND Internal Medicine
DX: M94.0 Chondrocostal junction syndrome [Tietze] (principal); I11.0 Hypertensive heart disease with heart failure; I50.9 Heart failure, unspecified; Z86.718 Personal history of other venous thrombosis and embolism; Z95.0 Presence of cardiac pacemaker; I25.2 Old myocardial infarction; I25.10 Atherosclerotic heart disease of native coronary artery without angina pectoris; R20.0 Anesthesia of skin; Z76.5 Malingerer [conscious simulation]; Z95.5 Presence of coronary angioplasty implant and graft
CPT/HCPCS: 36415; 71045; 71275; 72040; 80053; 80061; 83880; 84443; 84484; 85025; 93005; 93970; 99285; J1650; J2270; J2405; Q9967

== ENCOUNTER 2023-09-05 14:51 | Inpatient (IN) | payer MEDICARE, MEDICAID ==
[~2023-09-05] VITALS: Ht 175.3 cm; Wt 79.8 kg
[~2023-09-05 14:51] MED LIST changes: +ALPR2TAB2 PO; +ASPI-1497 PO; +OXYC30TA86 PO
[2023-09-05] MEDS ORDERED: ASPIRIN 81MG TABLET PO ONE (15:00)
[2023-09-05] MEDS ORDERED: FENTANYL CITRATE/PF 50MCG/ML 2ML VIAL IV ONE (15:00)
[2023-09-05] MEDS ORDERED: FENTANYL CITRATE/PF 50MCG/ML 2ML VIAL IV SCH (15:30)
[2023-09-05 15:51] LABS: BASOPHILS % 0.8 % (0.0-2.0); EOSINOPHILS % 0.8 % (0.0-5.0); HEMATOCRIT. 39.2 % (42.0-52.0); HEMOGLOBIN. 12.1 g/dL (14.0-18.0); LYMPHOCYTES % 18.4 % (20.0-50.0); MEAN CORPUSCULAR HEMOGLOBIN 26.5 pg (28.0-32.0); MEAN CORPUSCULAR VOLUME 85.7 fL (80.0-94.0); MONOCYTES % 7.7 % (2.0-8.0); NEUTROPHILS % 72.3 % (40.0-76.0); PLATELET 281 x1000/uL (130-400); RED BLOOD CELL COUNT 4.57 mill/uL (4.7-6.1); WHITE BLOOD COUNT 7.6 x1000/uL (4.5-11.0)
[2023-09-05 16:01] LABS: INR 1.1; PARTIAL THROMBOPLASTIN TIME 26.1 sec (23.4-31.0); PROTHROMBIN TIME 11.9 sec (9.6-11.0)
[2023-09-05 16:12] LABS: ALANINE AMINOTRANSFERASE 13 IU/L (10-49); ALBUMIN 3.6 g/dL (3.2-4.8); ASPARTATE AMINOTRANSFERASE 19 IU/L (<34); BILIRUBIN TOTAL 0.6 mg/dL (0.1-1.0); CALCIUM 8.8 mg/dL (8.7-10.4); CARBON DIOXIDE 23 mEq/L (21-32); CHLORIDE 111 mEq/L (98-107); CREATININE 0.8 mg/dL (0.6-1.3); GLUCOSE 91 mg/dL (70-105); POTASSIUM 4.1 mEq/L (3.5-5.1); PROTEIN TOTAL 7.1 g/dL (6.0-8.3); SODIUM 142 mEq/L (136-145); UREA NITROGEN BLOOD 7 mg/dL (9-23)
[2023-09-05 16:14] LABS: ETHANOL BLOOD < 10 mg/dL (<10); TROPONIN I HIGH SENSITIVITY 538 ng/L (3.0-53)
[2023-09-05 17:12] LABS: *AMPHETAMINES SCREEN URINE NEGATIVE (NEGATIVE); *BARBITURATES SCREEN URINE NEGATIVE (NEGATIVE); *BENZODIAZEPINES SCREEN URINE PRESUMPTIVE POSITIVE (NEGATIVE); *COCAINE SCREEN URINE NEGATIVE (NEGATIVE); CANNABINOID URINE SCREEN NEGATIVE (NEGATIVE); ECSTASY MDMA SCREEN URINE NEGATIVE (NEGATIVE); METHADONE URINE SCREEN Neg (NEGATIVE); OPIATES URINE SCREEN NEGATIVE (NEGATIVE); PHENCYCLIDINE URINE SCREEN NEGATIVE (NEGATIVE)
[2023-09-05 17:29] LABS: TROPONIN I HIGH SENSITIVITY 1413 ng/L (3.0-53)
[2023-09-05] MEDS ORDERED: FUROSEMIDE 40MG/4ML VIAL IVP ONE (18:45)
[2023-09-05 21:05] VITALS: BP 115/81; PULSE 103; RESP 18; TEMP 98.6
[2023-09-06] VITALS: BP 102/74; PULSE 69; RESP 18; TEMP 97.6
[2023-09-06] MEDS: HYDROCODONE/ACETAMINOPHEN 5/325MG TABLET PO PRN ×2 (00:01→05:44)
[2023-09-06 07:42] LABS: BASOPHILS % 0.5 % (0.0-2.0); EOSINOPHILS % 0.9 % (0.0-5.0); HEMATOCRIT. 41.1 % (42.0-52.0); HEMOGLOBIN. 12.7 g/dL (14.0-18.0); LYMPHOCYTES % 21.3 % (20.0-50.0); MEAN CORPUSCULAR VOLUME 87.3 fL (80.0-94.0); MEAN PLATELET VOLUME 9.4 fl (7.4-10.4); MONOCYTES % 7.4 % (2.0-8.0); NEUTROPHILS % 69.9 % (40.0-76.0); PLATELET 243 x1000/uL (130-400); RED BLOOD CELL COUNT 4.71 mill/uL (4.7-6.1); RED CELL DISTRIBUTION WIDTH 18.1 % (11.6-14.6); WHITE BLOOD COUNT 7.7 x1000/uL (4.5-11.0)
[2023-09-06 08:00] VITALS: BP 103/77; PULSE 116; RESP 22; TEMP 97.5
[2023-09-06] MEDS ORDERED: LORAZEPAM 4MG/ML INJ IV PRN (08:30)
[2023-09-06] MEDS: ASPIRIN 81MG TABLET PO SCH (08:50)
[2023-09-06] MEDS: GABAPENTIN 300MG CAPSULE PO SCH (09:30)
[2023-09-06] MEDS ORDERED: FUROSEMIDE 20MG TABLET PO SCH (09:30)
[2023-09-06] MEDS: LORAZEPAM 0.5MG TABLET PO SCH ×2 (09:30→21:00)
[2023-09-06] MEDS ORDERED: CARISOPRODOL 350 MG TABLET PO PRN (09:30)
[2023-09-06] MEDS ORDERED: RISPERIDONE 1MG TABLET PO SCH (09:30)
[2023-09-06] MEDS ORDERED: CARVEDILOL 3.125 MG TABLET PO SCH (09:30)
[2023-09-06] MEDS ORDERED: CLOP75TA33 PO (09:40)
[2023-09-06] MEDS ORDERED: ALPR1TAB2 PO (09:40)
[2023-09-06] MEDS ORDERED: DIVA-75 PO (09:40)
[2023-09-06] MEDS ORDERED: CYCL10TA21 PO (09:40)
[2023-09-06] MEDS ORDERED: FURO40TA5 PO (09:40)
[2023-09-06] MEDS ORDERED: RISP3TAB62 PO (09:40)
[2023-09-06] MEDS ORDERED: SERT-422 PO (09:40)
[2023-09-06] MEDS ORDERED: HALO2TAB PO (09:40)
[2023-09-06] MEDS ORDERED: QUET50TA23 PO (09:40)
[2023-09-06] MEDS ORDERED: APIX5TAB PO (09:40)
[2023-09-06] MEDS ORDERED: ATOR-2 PO (09:40)
[2023-09-06] MEDS ORDERED: LISI10TA26 PO (09:40)
[2023-09-06] MEDS ORDERED: QUET100T34 PO (09:40)
[2023-09-06] MEDS ORDERED: NITR0.4T49 SL (09:40)
[2023-09-06] MEDS ORDERED: NITROGLYCERIN 0.4MG TABLET SL SL PRN (10:00)
[2023-09-06] MEDS ORDERED: FUROSEMIDE 40MG TABLET PO SCH (10:00)
[2023-09-06] MEDS: RISPERIDONE 1MG TABLET PO SCH ×2 (10:00→21:00)
[2023-09-06] MEDS: SERTRALINE HCL 50MG TABLET PO SCH (10:00)
[2023-09-06] MEDS ORDERED: NALOXONE HCL 0.4MG/ML VIAL IV PRN (10:15)
[2023-09-06] MEDS: CLOPIDOGREL 75MG TABLET PO SCH (10:57)
[2023-09-06] MEDS: LISINOPRIL 10MG TABLET PO SCH (10:57)
[2023-09-06] MEDS: APIXABAN 5 MG TABLET PO SCH ×2 (10:58→17:11)
[2023-09-06] MEDS: ALPRAZOLAM 0.5 MG TABLET PO SCH (11:02)
[2023-09-06 12:00] VITALS: BP 103/72; PULSE 111; RESP 18; TEMP 97.5
[2023-09-06] MEDS ORDERED: OXYCODONE HCL 40 MG TABLET SR 12HR PO SCH (13:00)
[2023-09-06] MEDS: DIVALPROEX SODIUM 500MG DR TABLET PO SCH ×2 (13:00→17:00)
[2023-09-06] MEDS: FUROSEMIDE 40MG/4ML VIAL IVP SCH (15:52)
[2023-09-06] MEDS: GUAIFENESIN/CODEINE 200-20MG/10ML UDC PO PRN (15:52)
[2023-09-06 16:00] VITALS: BP 110/84; PULSE 115; RESP 22; TEMP 97.3
[2023-09-06] MEDS ORDERED: ALPRAZOLAM 0.5 MG TABLET PO SCH (17:00)
[2023-09-06] MEDS: AMIODARONE HCL 200 MG TABLET PO SCH (17:11)
[2023-09-06 17:55] LABS: CARBON DIOXIDE 25 mEq/L (21-32); CHLORIDE 107 mEq/L (98-107); GLUCOSE 115 mg/dL (70-105); POTASSIUM 4.9 mEq/L (3.5-5.1); SODIUM 141 mEq/L (136-145); UREA NITROGEN BLOOD 17 mg/dL (9-23)
[2023-09-06 17:56] LABS: CALCIUM 8.6 mg/dL (8.7-10.4); CREATINE KINASE 260 IU/L (46-171); CREATININE 0.9 mg/dL (0.6-1.3)
[2023-09-06 19:37] LABS: CREATINE KINASE 239 IU/L (46-171)
[2023-09-06 20:00] VITALS: BP 113/83; PULSE 121; RESP 20; TEMP 99.1
[2023-09-06 20:19] LABS: TROPONIN I HIGH SENSITIVITY 2111 ng/L (3.0-53)
[2023-09-06] MEDS: TRAZODONE HCL 50MG TABLET PO SCH (21:00)
[2023-09-06] MEDS: CYCLOBENZAPRINE 10MG TABLET PO SCH (21:00)
[2023-09-06] MEDS: ATORVASTATIN CALCIUM 40MG TABLET PO SCH (21:00)
[2023-09-06] MEDS ORDERED: QUETIAPINE FUMARATE 50MG TABLET PO SCH (21:00)
[2023-09-06] MEDS ORDERED: ATORVASTATIN CALCIUM 40MG TABLET PO SCH (21:00)
[2023-09-06] MEDS: QUETIAPINE FUMARATE 50MG TABLET PO SCH (21:00)
[2023-09-07] VITALS: PULSE 109; RESP 18; TEMP 98.9
[2023-09-07 02:17] LABS: CREATINE KINASE 172 IU/L (46-171)
[2023-09-07 03:35] LABS: TROPONIN I HIGH SENSITIVITY 1852 ng/L (3.0-53)
[2023-09-07 04:00] VITALS: BP 142/70; PULSE 105; RESP 20; TEMP 98.6
[2023-09-07] MEDS: GUAIFENESIN/CODEINE 200-20MG/10ML UDC PO PRN ×2 (06:36→21:04)
[2023-09-07 08:31] VITALS: BP 117/66; PULSE 119; RESP 22; TEMP 97.5
[2023-09-07] MEDS: GABAPENTIN 300MG CAPSULE PO SCH (08:32)
[2023-09-07] MEDS: ASPIRIN 81MG TABLET PO SCH (08:32)
[2023-09-07] MEDS: LISINOPRIL 10MG TABLET PO SCH (08:32)
[2023-09-07] MEDS: AMIODARONE HCL 200 MG TABLET PO SCH ×3 (08:32→18:20)
[2023-09-07] MEDS: CLOPIDOGREL 75MG TABLET PO SCH (08:33)
[2023-09-07] MEDS: SERTRALINE HCL 50MG TABLET PO SCH (08:33)
[2023-09-07] MEDS: APIXABAN 5 MG TABLET PO SCH ×2 (08:33→18:20)
[2023-09-07] MEDS: DIVALPROEX SODIUM 500MG DR TABLET PO SCH ×3 (08:33→18:20)
[2023-09-07] MEDS: ALPRAZOLAM 0.5 MG TABLET PO SCH (08:33)
[2023-09-07] MEDS ORDERED: SERTRALINE HCL 25MG TABLET PO SCH (09:00)
[2023-09-07] MEDS: RISPERIDONE 1MG TABLET PO SCH ×2 (09:00→20:36)
[2023-09-07] MEDS: LORAZEPAM 0.5MG TABLET PO SCH ×2 (09:00→20:35)
[2023-09-07] MEDS: FUROSEMIDE 40MG/4ML VIAL IVP SCH (09:19)
[2023-09-07 16:00] VITALS: BP 103/77; PULSE 110; RESP 18; TEMP 97.5
[2023-09-07] MEDS: HYDROCODONE/ACETAMINOPHEN 5/325MG TABLET PO PRN (16:31)
[2023-09-07 20:00] VITALS: BP 109/52; PULSE 99; RESP 22; TEMP 98.2
[2023-09-07] MEDS: ATORVASTATIN CALCIUM 40MG TABLET PO SCH (20:35)
[2023-09-07] MEDS: TRAZODONE HCL 50MG TABLET PO SCH (20:36)
[2023-09-07] MEDS: CYCLOBENZAPRINE 10MG TABLET PO SCH (20:36)
[2023-09-07] MEDS: QUETIAPINE FUMARATE 50MG TABLET PO SCH (20:36)
[2023-09-08] VITALS: BP 121/88; PULSE 107; RESP 22; TEMP 96.8
[2023-09-08 04:00] VITALS: BP 142/72; PULSE 93; RESP 20; TEMP 98.6
[2023-09-08] MEDS: HYDROCODONE/ACETAMINOPHEN 5/325MG TABLET PO PRN (04:07)
[2023-09-08 08:00] VITALS: BP 99/68; PULSE 99; RESP 20; TEMP 96.1
[2023-09-08] MEDS: AMIODARONE HCL 200 MG TABLET PO SCH ×3 (08:56→16:54)
[2023-09-08] MEDS: FUROSEMIDE 40MG/4ML VIAL IVP SCH (08:56)
[2023-09-08] MEDS: DIVALPROEX SODIUM 500MG DR TABLET PO SCH ×3 (08:57→16:54)
[2023-09-08] MEDS: SERTRALINE HCL 50MG TABLET PO SCH (08:57)
[2023-09-08] MEDS: LORAZEPAM 0.5MG TABLET PO SCH ×2 (08:57→21:51)
[2023-09-08] MEDS: CLOPIDOGREL 75MG TABLET PO SCH (08:57)
[2023-09-08] MEDS: GABAPENTIN 300MG CAPSULE PO SCH (08:57)
[2023-09-08] MEDS: RISPERIDONE 1MG TABLET PO SCH ×2 (08:57→21:52)
[2023-09-08] MEDS: ASPIRIN 81MG TABLET PO SCH (08:57)
[2023-09-08] MEDS: LISINOPRIL 10MG TABLET PO SCH (08:57)
[2023-09-08] MEDS: APIXABAN 5 MG TABLET PO SCH ×2 (08:57→16:54)
[2023-09-08] MEDS: ALPRAZOLAM 0.5 MG TABLET PO SCH (08:57)
[2023-09-08 12:00] VITALS: BP 105/64; PULSE 78; RESP 20; TEMP 96.6
[2023-09-08 16:00] VITALS: BP 90/63; PULSE 96; RESP 18; TEMP 96.3
[2023-09-08 17:07] LABS: CALCIUM 8.4 mg/dL (8.7-10.4); CARBON DIOXIDE 25 mEq/L (21-32); CHLORIDE 101 mEq/L (98-107); CREATININE 0.9 mg/dL (0.6-1.3); GLUCOSE 134 mg/dL (70-105); POTASSIUM 4.8 mEq/L (3.5-5.1); SODIUM 135 mEq/L (136-145); UREA NITROGEN BLOOD 23 mg/dL (9-23); URIC ACID 7.8 mg/dL (3.7-9.2)
[2023-09-08 20:00] VITALS: BP 110/72; PULSE 90; RESP 22; TEMP 97.3
[2023-09-08] MEDS: QUETIAPINE FUMARATE 50MG TABLET PO SCH (21:00)
[2023-09-08] MEDS: ATORVASTATIN CALCIUM 40MG TABLET PO SCH (21:51)
[2023-09-08] MEDS: CYCLOBENZAPRINE 10MG TABLET PO SCH (21:51)
[2023-09-08] MEDS: TRAZODONE HCL 50MG TABLET PO SCH (21:51)
[2023-09-09] VITALS (13 sets, daily range): BP systolic 87–116; BP diastolic 57–99; PULSE 71–100; RESP 13–42; TEMP 97.2–98.9
[2023-09-09] MEDS: GUAIFENESIN/CODEINE 200-20MG/10ML UDC PO PRN ×2 (06:25→17:52)
[2023-09-09] MEDS: AMIODARONE HCL 200 MG TABLET PO SCH ×3 (07:40→17:43)
[2023-09-09] MEDS: ASPIRIN 81MG TABLET PO SCH (08:38)
[2023-09-09] MEDS: DIVALPROEX SODIUM 500MG DR TABLET PO SCH ×3 (08:39→17:43)
[2023-09-09] MEDS: GABAPENTIN 300MG CAPSULE PO SCH (08:39)
[2023-09-09] MEDS: RISPERIDONE 1MG TABLET PO SCH ×2 (08:39→20:49)
[2023-09-09] MEDS: APIXABAN 5 MG TABLET PO SCH ×2 (08:39→17:43)
[2023-09-09] MEDS: SERTRALINE HCL 50MG TABLET PO SCH (08:39)
[2023-09-09] MEDS: CLOPIDOGREL 75MG TABLET PO SCH (08:39)
[2023-09-09] MEDS: ALPRAZOLAM 0.5 MG TABLET PO SCH (08:52)
[2023-09-09] MEDS: LORAZEPAM 0.5MG TABLET PO SCH ×2 (08:52→20:49)
[2023-09-09] MEDS: FUROSEMIDE 40MG/4ML VIAL IVP SCH (09:00)
[2023-09-09] MEDS: LISINOPRIL 10MG TABLET PO SCH (09:00)
[2023-09-09 11:52] LABS: BG BASE EXCESS -0.5 mmol/L (-2.0-2.0); BG CARBOXYHEMOGLOBIN 0.5 % (0.5-1.5); BG DEOXYHEMOGLOBIN 2.1 % (0.0-5.0); BG FRACTION INSPIRED OXYGEN 28; BG HCO3 ACT 22.4 mmol/L (22.0-26.0); BG METHEMOGLOBIN 0.3 % (0.0-1.5); BG OXYGEN SATURATION 97.9 % (92.0-98.5); BG OXYHEMOGLOBIN 97.1 % (94.0-97.0); BG PCO2 31.3 mmHg (35.0-45.0); BG PH 7.472 (7.350-7.450); BG SAMPLE SITE LEFT BRACHIAL; BG TOTAL HEMOGLOBIN 12.3 g/dL (12.0-18.0); BG VENT MODE NASAL CANNULA
[2023-09-09] MEDS: HYDROCODONE/ACETAMINOPHEN 5/325MG TABLET PO PRN (17:53)
[2023-09-09] MEDS: QUETIAPINE FUMARATE 50MG TABLET PO SCH (20:49)
[2023-09-09] MEDS: ATORVASTATIN CALCIUM 40MG TABLET PO SCH (20:49)
[2023-09-09] MEDS: CYCLOBENZAPRINE 10MG TABLET PO SCH (20:58)
[2023-09-09] MEDS: TRAZODONE HCL 50MG TABLET PO SCH (20:58)
[2023-09-09 21:18] LABS: BASOPHILS % 0.6 % (0.0-2.0); EOSINOPHILS % 0.4 % (0.0-5.0); HEMOGLOBIN. 11.5 g/dL (14.0-18.0); LYMPHOCYTES % 16.3 % (20.0-50.0); MEAN CORPUSCULAR HEMOGLOBIN 26.8 pg (28.0-32.0); MEAN CORPUSCULAR VOLUME 86.4 fL (80.0-94.0); MEAN PLATELET VOLUME 10.4 fl (7.4-10.4); MONOCYTES % 13.5 % (2.0-8.0); NEUTROPHILS % 69.2 % (40.0-76.0); PLATELET 201 x1000/uL (130-400); RED BLOOD CELL COUNT 4.28 mill/uL (4.7-6.1); RED CELL DISTRIBUTION WIDTH 17.8 % (11.6-14.6); WHITE BLOOD COUNT 7.8 x1000/uL (4.5-11.0)
[2023-09-09 21:32] LABS: CALCIUM 8.2 mg/dL (8.7-10.4); CARBON DIOXIDE 24 mEq/L (21-32); CHLORIDE 100 mEq/L (98-107); CREATININE 0.8 mg/dL (0.6-1.3); GLUCOSE 100 mg/dL (70-105); POTASSIUM 4.8 mEq/L (3.5-5.1); SODIUM 133 mEq/L (136-145); UREA NITROGEN BLOOD 22 mg/dL (9-23)
[2023-09-10] VITALS (13 sets, daily range): BP systolic 91–138; BP diastolic 63–90; PULSE 93–101; RESP 11–43; TEMP 97–98.4
[2023-09-10 07:27] LABS: BASOPHILS % 0.8 % (0.0-2.0); EOSINOPHILS % 0.1 % (0.0-5.0); HEMATOCRIT. 34.9 % (42.0-52.0); HEMOGLOBIN. 11.4 g/dL (14.0-18.0); LYMPHOCYTES % 14.9 % (20.0-50.0); MEAN CORPUSCULAR HEMOGLOBIN 27.4 pg (28.0-32.0); MEAN CORPUSCULAR HGB CONC 32.8 g/dL (31.0-37.0); MEAN CORPUSCULAR VOLUME 83.7 fL (80.0-94.0); MEAN PLATELET VOLUME 10.1 fl (7.4-10.4); MONOCYTES % 12.6 % (2.0-8.0); NEUTROPHILS % 71.6 % (40.0-76.0); PLATELET 186 x1000/uL (130-400); RED BLOOD CELL COUNT 4.17 mill/uL (4.7-6.1); RED CELL DISTRIBUTION WIDTH 17.4 % (11.6-14.6); WHITE BLOOD COUNT 6.5 x1000/uL (4.5-11.0)
[2023-09-10 08:17] LABS: CALCIUM 8.6 mg/dL (8.7-10.4); CARBON DIOXIDE 23 mEq/L (21-32); CHLORIDE 100 mEq/L (98-107); CREATININE 0.9 mg/dL (0.6-1.3); GLUCOSE 102 mg/dL (70-105); POTASSIUM 5.3 mEq/L (3.5-5.1); SODIUM 133 mEq/L (136-145); UREA NITROGEN BLOOD 24 mg/dL (9-23)
[2023-09-10] MEDS: LORAZEPAM 0.5MG TABLET PO SCH (08:58)
[2023-09-10] MEDS: FUROSEMIDE 40MG/4ML VIAL IVP SCH (08:58)
[2023-09-10] MEDS: SERTRALINE HCL 50MG TABLET PO SCH (08:58)
[2023-09-10] MEDS: ASPIRIN 81MG TABLET PO SCH (08:58)
[2023-09-10] MEDS: GABAPENTIN 300MG CAPSULE PO SCH (08:58)
[2023-09-10] MEDS: DIVALPROEX SODIUM 500MG DR TABLET PO SCH ×3 (08:58→17:24)
[2023-09-10] MEDS: AMIODARONE HCL 200 MG TABLET PO SCH ×2 (08:59→17:23)
[2023-09-10] MEDS: RISPERIDONE 1MG TABLET PO SCH (08:59)
[2023-09-10] MEDS: APIXABAN 5 MG TABLET PO SCH ×2 (08:59→17:24)
[2023-09-10] MEDS: LISINOPRIL 10MG TABLET PO SCH (09:00)
[2023-09-10] MEDS: ALPRAZOLAM 0.5 MG TABLET PO SCH (09:00)
[2023-09-10] MEDS: CLOPIDOGREL 75MG TABLET PO SCH (09:01)
[2023-09-10] MEDS: ATORVASTATIN CALCIUM 40MG TABLET PO SCH (22:27)
[2023-09-10] MEDS: QUETIAPINE FUMARATE 50MG TABLET PO SCH (22:28)
[2023-09-10] MEDS: TRAZODONE HCL 50MG TABLET PO SCH (22:28)
[2023-09-11] VITALS (12 sets, daily range): BP systolic 96–111; BP diastolic 73–87; PULSE 83–101; RESP 19–30; TEMP 97.1–98.5
[2023-09-11 07:48] LABS: HEMOGLOBIN. 11.7 g/dL (14.0-18.0); MEAN CORPUSCULAR HEMOGLOBIN 27.6 pg (28.0-32.0); MEAN CORPUSCULAR HGB CONC 32.4 g/dL (31.0-37.0); MEAN CORPUSCULAR VOLUME 85.3 fL (80.0-94.0); PLATELET 170 x1000/uL (130-400); RED BLOOD CELL COUNT 4.22 mill/uL (4.7-6.1); RED CELL DISTRIBUTION WIDTH 17.9 % (11.6-14.6)
[2023-09-11 08:26] LABS: DIFFERENTIAL COMMENT 1
[2023-09-11] MEDS: LISINOPRIL 10MG TABLET PO SCH (09:00)
[2023-09-11 09:01] LABS: CALCIUM 8.1 mg/dL (8.7-10.4); CARBON DIOXIDE 21 mEq/L (21-32); CHLORIDE 102 mEq/L (98-107); CREATININE 0.8 mg/dL (0.6-1.3); GLUCOSE 85 mg/dL (70-105); POTASSIUM 4.6 mEq/L (3.5-5.1); SODIUM 133 mEq/L (136-145); UREA NITROGEN BLOOD 16 mg/dL (9-23)
[2023-09-11] MEDS: APIXABAN 5 MG TABLET PO SCH ×2 (09:03→17:47)
[2023-09-11] MEDS: AMIODARONE HCL 200 MG TABLET PO SCH ×2 (09:03→17:47)
[2023-09-11] MEDS: CLOPIDOGREL 75MG TABLET PO SCH (09:04)
[2023-09-11] MEDS: SERTRALINE HCL 50MG TABLET PO SCH (09:04)
[2023-09-11] MEDS: FUROSEMIDE 40MG/4ML VIAL IVP SCH (09:04)
[2023-09-11] MEDS: DIVALPROEX SODIUM 500MG DR TABLET PO SCH ×3 (09:04→17:47)
[2023-09-11] MEDS: ASPIRIN 81MG TABLET PO SCH (09:04)
[2023-09-11 12:00] LABS: BG BASE EXCESS 3.2 mmol/L (-2.0-2.0); BG CARBOXYHEMOGLOBIN 0.7 % (0.5-1.5); BG DEOXYHEMOGLOBIN 4.5 % (0.0-5.0); BG FRACTION INSPIRED OXYGEN 24; BG HCO3 ACT 24.1 mmol/L (22.0-26.0); BG METHEMOGLOBIN 0.2 % (0.0-1.5); BG OXYGEN SATURATION 95.5 % (92.0-98.5); BG OXYHEMOGLOBIN 94.6 % (94.0-97.0); BG PCO2 26.5 mmHg (35.0-45.0); BG PH 7.576 (7.350-7.450); BG PO2 75.8 mmHg (75.0-100.0); BG SAMPLE SITE RIGHT BRACHIAL; BG TOTAL HEMOGLOBIN 13.3 g/dL (12.0-18.0); BG VENT MODE NASAL CANNULA
[2023-09-11 13:40] LABS: AMMONIA 17 uMol/L (<32)
[2023-09-11 19:47] LABS: OVALOCYTES 1+
[2023-09-11 19:48] LABS: ANISOCYTOSIS 1+
[2023-09-11] MEDS: QUETIAPINE FUMARATE 50MG TABLET PO SCH (21:00)
[2023-09-11 21:40] LABS: PLATELET ESTIMATE NORMAL
[2023-09-12] VITALS (13 sets, daily range): BP systolic 88–114; BP diastolic 65–91; PULSE 83–98; RESP 16–35; TEMP 97.5–98.1
[2023-09-12 08:12] LABS: HEMATOCRIT. 35.3 % (42.0-52.0); HEMOGLOBIN. 11.2 g/dL (14.0-18.0); MEAN CORPUSCULAR HEMOGLOBIN 27.1 pg (28.0-32.0); MEAN CORPUSCULAR HGB CONC 31.7 g/dL (31.0-37.0); MEAN CORPUSCULAR VOLUME 85.5 fL (80.0-94.0); MEAN PLATELET VOLUME 10.2 fl (7.4-10.4); PLATELET 180 x1000/uL (130-400); RED BLOOD CELL COUNT 4.13 mill/uL (4.7-6.1); RED CELL DISTRIBUTION WIDTH 18.1 % (11.6-14.6); WHITE BLOOD COUNT 5.2 x1000/uL (4.5-11.0)
[2023-09-12 08:31] LABS: DIFFERENTIAL COMMENT 1
[2023-09-12 08:48] LABS: CALCIUM 8.2 mg/dL (8.7-10.4); CARBON DIOXIDE 29 mEq/L (21-32); CHLORIDE 100 mEq/L (98-107); CREATININE 0.8 mg/dL (0.6-1.3); GLUCOSE 87 mg/dL (70-105); POTASSIUM 3.6 mEq/L (3.5-5.1); SODIUM 136 mEq/L (136-145); UREA NITROGEN BLOOD 17 mg/dL (9-23)
[2023-09-12] MEDS: LISINOPRIL 10MG TABLET PO SCH (09:00)
[2023-09-12] MEDS: CLOPIDOGREL 75MG TABLET PO SCH (09:00)
[2023-09-12] MEDS: DIVALPROEX SODIUM 500MG DR TABLET PO SCH ×3 (09:19→18:19)
[2023-09-12] MEDS: ASPIRIN 81MG TABLET PO SCH (09:19)
[2023-09-12] MEDS: APIXABAN 5 MG TABLET PO SCH ×2 (09:19→18:19)
[2023-09-12] MEDS: SERTRALINE HCL 50MG TABLET PO SCH (09:20)
[2023-09-12] MEDS: AMIODARONE HCL 200 MG TABLET PO SCH ×2 (09:20→18:19)
[2023-09-12] MEDS: GUAIFENESIN/CODEINE 200-20MG/10ML UDC PO PRN ×2 (09:36→21:36)
[2023-09-12] MEDS: FUROSEMIDE 40MG TABLET PO SCH (13:28)
[2023-09-12] MEDS: QUETIAPINE FUMARATE 50MG TABLET PO SCH (21:12)
[2023-09-12] MEDS: ATORVASTATIN CALCIUM 40MG TABLET PO SCH (21:12)
[2023-09-12] MEDS: TRAZODONE HCL 50MG TABLET PO SCH ×2 (21:12→21:20)
[2023-09-12 22:42] LABS: ANISOCYTOSIS 1+; PLATELET ESTIMATE NORMAL
[2023-09-13] VITALS (8 sets, daily range): BP systolic 93–122; BP diastolic 62–92; PULSE 80–94; RESP 19–42; TEMP 97–98.1
[2023-09-13 06:41] LABS: HEMATOCRIT. 34.3 % (42.0-52.0); HEMOGLOBIN. 11.2 g/dL (14.0-18.0); MEAN CORPUSCULAR HEMOGLOBIN 26.9 pg (28.0-32.0); MEAN CORPUSCULAR HGB CONC 32.6 g/dL (31.0-37.0); MEAN CORPUSCULAR VOLUME 82.4 fL (80.0-94.0); MEAN PLATELET VOLUME 10.3 fl (7.4-10.4); PLATELET 179 x1000/uL (130-400); RED BLOOD CELL COUNT 4.16 mill/uL (4.7-6.1); RED CELL DISTRIBUTION WIDTH 17.8 % (11.6-14.6); WHITE BLOOD COUNT 4.8 x1000/uL (4.5-11.0)
[2023-09-13 06:42] LABS: DIFFERENTIAL COMMENT 1
[2023-09-13 07:11] LABS: CALCIUM 8.4 mg/dL (8.7-10.4); CARBON DIOXIDE 29 mEq/L (21-32); CHLORIDE 99 mEq/L (98-107); CREATININE 0.7 mg/dL (0.6-1.3); GLUCOSE 84 mg/dL (70-105); SODIUM 137 mEq/L (136-145); UREA NITROGEN BLOOD 13 mg/dL (9-23)
[2023-09-13] MEDS: AMIODARONE HCL 200 MG TABLET PO SCH ×2 (08:58→18:01)
[2023-09-13] MEDS: FUROSEMIDE 40MG TABLET PO SCH (08:58)
[2023-09-13] MEDS: SERTRALINE HCL 50MG TABLET PO SCH (08:58)
[2023-09-13] MEDS: ASPIRIN 81MG TABLET PO SCH (08:58)
[2023-09-13] MEDS: APIXABAN 5 MG TABLET PO SCH ×2 (08:58→18:01)
[2023-09-13] MEDS: CLOPIDOGREL 75MG TABLET PO SCH (08:58)
[2023-09-13] MEDS: DIVALPROEX SODIUM 500MG DR TABLET PO SCH ×3 (08:58→18:01)
[2023-09-13] MEDS: LISINOPRIL 10MG TABLET PO SCH (08:59)
[2023-09-13] MEDS ORDERED: LIDOCAINE HCL 1% 10 MG/ML 10ML VIAL ONE (10:00)
[2023-09-13] MEDS: ATORVASTATIN CALCIUM 40MG TABLET PO SCH (20:00)
[2023-09-13] MEDS: QUETIAPINE FUMARATE 50MG TABLET PO SCH (20:00)
[2023-09-13] MEDS: TRAZODONE HCL 50MG TABLET PO SCH (20:00)
[2023-09-13 23:43] LABS: PLATELET ESTIMATE NORMAL
[2023-09-13 23:44] LABS: ANISOCYTOSIS 1+
[2023-09-14] VITALS: BP 111/68; PULSE 82; RESP 16; TEMP 97.8
[2023-09-14 04:01] VITALS: BP 89/60; PULSE 80; RESP 20; TEMP 97.6
[2023-09-14 08:00] VITALS: BP 83/54; PULSE 85; RESP 25; TEMP 97.4
[2023-09-14] MEDS: AMIODARONE HCL 200 MG TABLET PO SCH ×2 (09:57→17:59)
[2023-09-14] MEDS: APIXABAN 5 MG TABLET PO SCH ×2 (09:58→17:57)
[2023-09-14] MEDS: ASPIRIN 81MG TABLET PO SCH (09:58)
[2023-09-14] MEDS: DIVALPROEX SODIUM 500MG DR TABLET PO SCH ×3 (09:58→17:56)
[2023-09-14] MEDS: FUROSEMIDE 40MG TABLET PO SCH (09:59)
[2023-09-14] MEDS: CLOPIDOGREL 75MG TABLET PO SCH (09:59)
[2023-09-14] MEDS: LISINOPRIL 10MG TABLET PO SCH (10:00)
[2023-09-14] MEDS: SERTRALINE HCL 50MG TABLET PO SCH (10:00)
[2023-09-14 12:00] VITALS: BP 90/73; PULSE 85; RESP 18; TEMP 97.2
[2023-09-14 16:00] VITALS: BP 94/81; PULSE 89; RESP 33; TEMP 97.2
[2023-09-14] MEDS: GUAIFENESIN/CODEINE 200-20MG/10ML UDC PO PRN (17:58)
[2023-09-14 20:00] VITALS: BP 96/54; PULSE 86; RESP 13; TEMP 97.2
[2023-09-14] MEDS: QUETIAPINE FUMARATE 50MG TABLET PO SCH (20:24)
[2023-09-14] MEDS: ATORVASTATIN CALCIUM 40MG TABLET PO SCH (20:24)
[2023-09-14] MEDS: TRAZODONE HCL 50MG TABLET PO SCH (20:24)
[2023-09-15] VITALS: BP 85/71; PULSE 77; RESP 22; TEMP 97.5
[2023-09-15 04:00] VITALS: BP 90/73; PULSE 74; RESP 16; TEMP 97.4
[2023-09-15] MEDS ORDERED: IPRATROPIUM BROMIDE (0.02%) 0.5MG/2.5ML NEB HHN PRN (04:30)
[2023-09-15] MEDS ORDERED: NON FORMULARY PATIENT HOME MED XX SCH (04:45)
[2023-09-15] MEDS ORDERED: LEVALBUTEROL TARTRATE ORI PRN (05:45)
[2023-09-15 06:44] LABS: HEMATOCRIT. 33.5 % (42.0-52.0); MEAN CORPUSCULAR VOLUME 81.9 fL (80.0-94.0); MEAN PLATELET VOLUME 10.5 fl (7.4-10.4); PLATELET 170 x1000/uL (130-400); RED BLOOD CELL COUNT 4.09 mill/uL (4.7-6.1); RED CELL DISTRIBUTION WIDTH 17.4 % (11.6-14.6); WHITE BLOOD COUNT 4.6 x1000/uL (4.5-11.0)
[2023-09-15 06:48] LABS: DIFFERENTIAL COMMENT 1
[2023-09-15 07:25] LABS: CALCIUM 8.3 mg/dL (8.7-10.4); CARBON DIOXIDE 25 mEq/L (21-32); CHLORIDE 100 mEq/L (98-107); CREATININE 0.8 mg/dL (0.6-1.3); GLUCOSE 66 mg/dL (70-105); POTASSIUM 3.9 mEq/L (3.5-5.1); SODIUM 136 mEq/L (136-145); UREA NITROGEN BLOOD 16 mg/dL (9-23); URIC ACID 6.8 mg/dL (3.7-9.2)
[2023-09-15 08:00] VITALS: BP 93/79; PULSE 80; RESP 27; TEMP 97.8
[2023-09-15] MEDS: AMIODARONE HCL 200 MG TABLET PO SCH ×2 (08:00→18:00)
[2023-09-15] MEDS: DIVALPROEX SODIUM 500MG DR TABLET PO SCH ×3 (09:06→17:00)
[2023-09-15] MEDS: ASPIRIN 81MG TABLET PO SCH (09:06)
[2023-09-15] MEDS: FUROSEMIDE 40MG TABLET PO SCH (09:06)
[2023-09-15] MEDS: SERTRALINE HCL 50MG TABLET PO SCH (09:07)
[2023-09-15] MEDS: CLOPIDOGREL 75MG TABLET PO SCH (09:07)
[2023-09-15] MEDS: APIXABAN 5 MG TABLET PO SCH ×2 (09:08→17:00)
[2023-09-15] MEDS: LISINOPRIL 10MG TABLET PO SCH (09:13)
[2023-09-15 12:00] VITALS: BP 94/89; PULSE 81; RESP 27; TEMP 97.6
[2023-09-15 14:40] LABS: PLATELET ESTIMATE NORMAL
[2023-09-15 14:41] LABS: ANISOCYTOSIS 1+
[2023-09-15 16:00] VITALS: BP 125/80; PULSE 80; RESP 18
[2023-09-15] MEDS ORDERED: BUDESONIDE 0.5MG/2ML NEB HHN SCH ×2 (17:15)
[2023-09-15] MEDS ORDERED: IPRATROPIUM BROMIDE (0.02%) 0.5MG/2.5ML NEB HHN SCH (17:15)
[2023-09-15 20:00] VITALS: BP 117/77; PULSE 77; RESP 22; TEMP 97.4
[2023-09-16] VITALS (9 sets, daily range): BP systolic 98–120; BP diastolic 72–90; PULSE 82–91; RESP 18–30; TEMP 97.3–97.8; O2SAT 100
[2023-09-16] MEDS: TRAZODONE HCL 50MG TABLET PO SCH (00:38)
[2023-09-16] MEDS: QUETIAPINE FUMARATE 50MG TABLET PO SCH (00:39)
[2023-09-16] MEDS: ATORVASTATIN CALCIUM 40MG TABLET PO SCH (00:39)
[2023-09-16] MEDS: IPRATROPIUM BROMIDE (0.02%) 0.5MG/2.5ML NEB HHN SCH ×3 (02:15→15:11)
[2023-09-16] MEDS ORDERED: RISPERIDONE 1MG TABLET PO SCH (09:00)
[2023-09-16] MEDS ORDERED: SERTRALINE HCL 25MG TABLET PO SCH (09:00)
[2023-09-16] MEDS: DIVALPROEX SODIUM 500MG DR TABLET PO SCH ×3 (09:00→17:00)
[2023-09-16] MEDS ORDERED: LISINOPRIL 2.5MG TABLET PO SCH (09:00)
[2023-09-16] MEDS: APIXABAN 5 MG TABLET PO SCH (09:53)
[2023-09-16] MEDS: CLOPIDOGREL 75MG TABLET PO SCH (09:53)
[2023-09-16] MEDS: FUROSEMIDE 40MG TABLET PO SCH (09:53)
[2023-09-16] MEDS: GUAIFENESIN/CODEINE 200-20MG/10ML UDC PO PRN (14:14)
[2023-09-16] MEDS ORDERED: QUETIAPINE FUMARATE 50MG TABLET PO SCH (21:00)
== END 2023-09-16 18:00 | DRG 308 ==
LOC: ER 15:10 → EDBEDREQ 18:25 → 8WST 22:06 → 5EST 09-09 13:54
PROVIDERS: ADMIT Internal Medicine; ATTEND Internal Medicine
PROC: 02HV33Z Insertion of Infusion Device into Superior Vena Cava, Percutaneous Approach (ICD-10-PCS; principal; 2023-09-13)
PROC: B548ZZA Ultrasonography of Superior Vena Cava, Guidance (ICD-10-PCS; 2023-09-13)
DX: I49.01 Ventricular fibrillation (principal); I62.03 Nontraumatic chronic subdural hemorrhage; I50.20 Unspecified systolic (congestive) heart failure; I42.0 Dilated cardiomyopathy; I25.10 Atherosclerotic heart disease of native coronary artery without angina pectoris; I11.0 Hypertensive heart disease with heart failure; J44.9 Chronic obstructive pulmonary disease, unspecified; I07.1 Rheumatic tricuspid insufficiency; Z87.01 Personal history of pneumonia (recurrent); Z95.810 Presence of automatic (implantable) cardiac defibrillator; Z95.5 Presence of coronary angioplasty implant and graft; Z79.82 Long term (current) use of aspirin; Z99.81 Dependence on supplemental oxygen; Z79.899 Other long term (current) drug therapy
CPT/HCPCS: 36415; 36573; 36600; 71045; 80048; 80053; 80305; 80320; 82140; 82375; 82550; 82553; 82805; 82962; 83735; 83880; 84484; 84550; 85025; 93005; 93306; 94640; 99291; C1725; J1940; J2060; J3010; J3490; J7626; G0480